=== PATIENT | female | born 1955 | race Caucasian/White ===

== ENCOUNTER → 2016-06-22 | Outpatient (CLI) | payer BC ==
[~2016-06-22] MED LIST: LEVO112T; LEVO112T3; LEVOTH PO; LEVOXYL PO; MAMMOGRAM; TORADOL PO; VICO5TAB; [UNRECOGNIZED DRUG - OTHER] PO; cipro
[2016-06-22 15:21] LABS: FREE T4 1.29 NG/DL (0.76-1.46)
== END ==
LOC: M LAB 13:58
PROVIDERS: ATTEND Nurse Practitioner Family
DX: E03.9 Hypothyroidism, unspecified (principal); E55.9 Vitamin D deficiency, unspecified

== ENCOUNTER → 2016-07-30 | Outpatient (CLI) | payer BC ==
--- NOTE | 2016-08-02 09:36 | REPMRS ---
Patient History The patient states she had a clinical breast exam in June 2016.Family history of breast cancer in sister at age 50 or over. Digital Mammo Screening Bilat: July 30, 2016 - Exam #: [id number] Bilateral CC and MLO view(s) were taken. Technologist: Cherie Gavin, Technologist Prior study comparison: July 28, 2015, bilateral digital mammo screening bilat performed at [facility]. July 26, 2014, bilateral digital mammo screening bilat performed at [facility]. FINDINGS: There are scattered fibroglandular densities. There is a fairly symmetric fibroglandular pattern in both breasts. There has been no interval development of masses, areas of architectural distortion or clusters of microcalcifications typical of malignancy. ASSESSMENT: BI-RADS/ACR category 2 mammogram. Benign finding(s). Recommendation Routine screening mammogram of both breasts in 1 year (for women over age 40). This mammogram was interpreted with the aid of an FDA-approved computer-aided dectection system. Electronically Signed By: Noah Lawson MD 08/02/16 0936
== END ==
LOC: M RAD 16:18
PROVIDERS: ATTEND Nurse Practitioner Family
DX: Z12.31 Encounter for screening mammogram for malignant neoplasm of breast (principal); Z80.3 Family history of malignant neoplasm of breast; R92.8 Other abnormal and inconclusive findings on diagnostic imaging of breast

== ENCOUNTER → 2016-09-27 | Outpatient (CLI) | payer BC ==
[~2016-09-27] VITALS: Ht 170.2 cm; Wt 86.2 kg
[~2016-09-27] MED LIST changes: +ASPI1TAB PO; +CALCTAB75 PO; +DESFLURANE 240 ML INHALANT As Ordered ONE; +LEVO88TA24 PO; +MULT1TAB10 PO; +NS 1,000 ML IV ONE; +OMEG100011 PO; +PROPOFOL 200 MG/20 ML VIAL As Ordered ONE; +VITA100037 PO
--- NOTE | 2016-09-27 13:03 | ROOR ---
Patient Name: Mamie Johnson Procedure Date: 09/27/2016 12:26 PM Date of : 1955 Age: 61 Room: [facility] Gender: Female Note Status: Finalized Procedure: Colonoscopy Indications: Last colonoscopy: April 2010, Positive Cologuard test Providers: Robi DE LA CRUZ MD Referring MD: Roma Kimball NP Requesting Provider: Medicines: Monitored Anesthesia Care Complications: No immediate complications. Procedure: Pre-Anesthesia Assessment: - The heart rate, respiratory rate, oxygen saturations, blood pressure, adequacy of pulmonary ventilation, and response to care were monitored throughout the procedure. The Colonoscope was introduced through the anus and advanced to the cecum, identified by appendiceal orifice and ileocecal valve. The colonoscopy was performed without difficulty. The patient tolerated the procedure well. The quality of the bowel preparation was good. Findings: The perianal and digital rectal examinations were normal. Two flat polyps were found in the ascending colon. The polyps were 5 mm in size. These polyps were removed with a cold snare. Resection and retrieval were complete. A 3 mm polyp was found in the sigmoid colon. The polyp was sessile. The polyp was removed with a cold snare. Resection was complete, but the polyp tissue was not retrieved. A few small-mouthed diverticula were found in the sigmoid colon. The exam was otherwise without abnormality on direct and retroflexion views. Impression: - Two 5-6 mm polyps in the ascending colon, removed with a cold snare. Resected and retrieved. - One 3 mm polyp in the sigmoid colon, removed with a cold snare. Complete resection. Polyp tissue not retrieved. - Moderate diverticulosis in the sigmoid colon. - The examination was otherwise normal on direct and retroflexion views. Recommendation: -In view of positive cologuard and negative colonoscopy, I would recommend repeat colonoscopy in 1 year. Robi De La Cruz MD Robi DE LA CRUZ MD 09/27/2016 1:03:16 PM This report has been signed electronically. Number of Addenda: 0 Note Initiated On: 09/27/2016 12:26 PM Estimated Blood Loss: Estimated blood loss: none.
[2016-09-27 13:20] VITALS: BP 156/77
== END ==
LOC: M OPP 10:34
PROVIDERS: ATTEND Internal Medicine Gastroenterology
DX: R19.5 Other fecal abnormalities (principal); D12.2 Benign neoplasm of ascending colon; D12.5 Benign neoplasm of sigmoid colon; K57.30 Diverticulosis of large intestine without perforation or abscess without bleeding; I51.9 Heart disease, unspecified; E03.9 Hypothyroidism, unspecified; R51 Headache; L43.9 Lichen planus, unspecified; Z87.891 Personal history of nicotine dependence; Z79.82 Long term (current) use of aspirin; Z79.899 Other long term (current) drug therapy; Z83.71 Family history of colonic polyps

== ENCOUNTER → 2016-11-16 | Outpatient (CLI) | payer BC ==
[~2016-11-16] MED LIST changes: -DESFLURANE 240 ML INHALANT As Ordered ONE; -NS 1,000 ML IV ONE; -PROPOFOL 200 MG/20 ML VIAL As Ordered ONE; -VITA100037 PO; +VITA100067 PO
--- NOTE | 2016-11-16 09:32 | REP ---
Thyroid ultrasound: There are no comparison studies. The patient has a right lobe at the knee that was performed approximate 13 years ago. There is a small volume of soft tissue in the right thyroid bed measuring 1.8 x 0.6 x 0.5 cm, possibly a small right lobe foramen. It is homogeneous with no nodule or mass. The left lobe is enlarged measuring 7.1 x 3.7 x 2.8 cm. The parenchyma is heterogeneous. Two distinct nodules are identified in the upper pole, one measuring 1.4 cm in diameter and the other measuring 2.1 cm in diameter. Additionally, in the midline of the neck. There is a cyst - like structure measuring 2.2 x 1.7 x 1.8 cm containing hypoechoic material, therefore a complex cyst. This may represent a thyroglossal duct cyst. However, the hypoechoic contents may represent infection or neoplasm. Impression: Right lobe thyroidectomy. There are two nodules in the left lobe. There is a cyst-like structure in the midline compatible with a thyroglossal duct cyst. However, this cyst is filled with hypoechoic material rather than fluid. This is nonspecific and may merely represent debris, however, infection and neoplasm are primary diagnostic concerns. Follow-up is recommended. Consider ENT consultation. Signed by Noah Verdugo MD 11/16/2016 09:23 A
== END ==
LOC: M RAD 08:41
PROVIDERS: ATTEND Emergency Medicine
DX: R22.1 Localized swelling, mass and lump, neck (principal); E89.0 Postprocedural hypothyroidism; E04.1 Nontoxic single thyroid nodule

== ENCOUNTER → 2016-12-03 | Outpatient (CLI) | payer BC ==
[~2016-12-03] MED LIST changes: +ISOVUE-370 76% 100ML VIAL (Q9967) As Ordered ONE
--- NOTE | 2016-12-04 09:00 | REP ---
CT NECK WITH CONTRAST: HISTORY: Neck mass. CONTRAST: Isovue 370, 75 mL. The naso-, hannah- and hypopharynx and larynx are normal in appearance. The salivary glands are normal in size and density. The patient is status post right thyroidectomy. The left thyroid lobe is enlarged and heterogeneous in density. The left thyroid lobe measures 4.9 cm in transverse by 5 cm in AP by 7.7 cm in cephalocaudal dimensions. There is minimal mass effect on the trachea that is displaced minimally to the right. There is inferior extension into the superior mediastinum. There is superior extension on the left neck to the level of the thyroid cartilage. An enlarged lymph node 1.1 cm in width is present in the right internal jugular chain at the level of the hannah- and hypopharynx. An enlarged lymph node 1.1_ cm in width is present in the left internal jugular chain at the level of the hannah- and hypopharynx. Small lymph nodes less than 1 cm in size are present in the posterior triangles, submandibular and submental areas. Atherosclerotic calcification is present at the left carotid bifurcation. Minimal degenerative change is present in the cervical spine. The lung apices are clear. Mucosal thickening is present in the maxillary sinuses. IMPRESSION: The patient is status post right thyroidectomy. The left thyroid lobe is enlarged and heterogeneous in density. This most likely represents goiter. Signed by Gene Sullivan MD 12/04/2016 09:03 A
== END ==
LOC: M RAD 17:41
PROVIDERS: ATTEND Otolaryngology
DX: E04.9 Nontoxic goiter, unspecified (principal)
CPT/HCPCS: 70491; Q9967

== ENCOUNTER → 2016-12-16 | Outpatient (CLI) | payer BC ==
[~2016-12-16] MED LIST changes: -ISOVUE-370 76% 100ML VIAL (Q9967) As Ordered ONE; +LIDOCAINE 1% MDV 20ML VIAL As Ordered ONE
--- NOTE | 2016-12-16 16:44 | REP ---
ULTRASOUND GUIDED LEFT THYROID BIOPSY AND ANTERIOR MIDLINE NECK MASS BIOPSY: The procedure was performed under the direct supervision of Dr. Gudino. The patient has a history of an enlarged left thyroid seen on a previous CT scan dated 12/03/2016 as well as on a previous ultrasound dated 11/16/2016. There is also a cystlike structure in the midline measuring 2.2 x 1.7 x 1.8 cm. The risks and benefits of the procedure were explained to the patient and informed consent was obtained. The left thyroid mass and midline cystic structure were localized using ultrasound guidance. The skin was prepped and draped in a sterile fashion. 1% lidocaine was used as a local anesthetic. The left thyroid mass was addressed first. Using ultrasound guidance, four fine-needle aspirations were obtained using 25-gauge needles. The midline cystic structure was then addressed. Using ultrasound guidance, an 18-gauge needle was inserted and advanced into the lesion. A few drops of red-colored fluid was withdrawn and sent to the lab. Four fine needle aspirations were then obtained. The patient tolerated the procedure well and there were no immediate complications. After the appropriate amount of monitored convalescence the patient was discharged from the department. Reviewed by SHAY Dobbs 12/17/2016 03:02 PEdited and Signed by Harinder Gudino MD 12/17/2016 04:09 P
== END ==
LOC: M RADPRO 08:14
PROVIDERS: ATTEND Otolaryngology
DX: E04.2 Nontoxic multinodular goiter (principal); I35.9 Nonrheumatic aortic valve disorder, unspecified; R51 Headache; E03.9 Hypothyroidism, unspecified; J32.9 Chronic sinusitis, unspecified; F17.210 Nicotine dependence, cigarettes, uncomplicated; Z86.39 Personal history of other endocrine, nutritional and metabolic disease; Z79.82 Long term (current) use of aspirin; Z79.899 Other long term (current) drug therapy

== ENCOUNTER → 2016-12-26 | Outpatient (CLI) | payer BC ==
[~2016-12-26] MED LIST changes: -LIDOCAINE 1% MDV 20ML VIAL As Ordered ONE
[2016-12-26 07:25] LABS: ALBUMIN 3.6 GM/DL (3.2-5.2); ALBUMIN/GLOBULIN RATIO 0.92 (1.00-1.93); ALKALINE PHOSPHATASE 84 U/L (45-117); ALT/SGPT 36 U/L (12-78); ANION GAP 10 MEQ/L (8-16); AST/SGOT 25 U/L (15-37); BILIRUBIN,TOTAL 0.4 MG/DL (0.2-1.0); BLOOD UREA NITROGEN 14 MG/DL (7-18); CALCIUM LEVEL 9.4 MG/DL (8.8-10.2); CARBON DIOXIDE LEVEL 27 MEQ/L (21-32); CHLORIDE LEVEL 108 MEQ/L (98-107); CHOLESTEROL LEVEL 248 MG/DL (<200); CREATININE FOR GFR 0.85 MG/DL (0.55-1.02); FREE T4 1.11 NG/DL (0.76-1.46); GLOMERULAR FILTRATION RATE > 60.0 (>45); GLUCOSE, FASTING 92 MG/DL (80-110); POTASSIUM SERUM 3.9 MEQ/L (3.5-5.1); SODIUM LEVEL 145 MEQ/L (136-145); TOTAL PROTEIN 7.5 GM/DL (6.4-8.2); TRIGLYCERIDES LEVEL 361 MG/DL (<150)
== END ==
LOC: M LAB 06:18
PROVIDERS: ATTEND Nurse Practitioner Family
DX: E03.9 Hypothyroidism, unspecified (principal); E78.2 Mixed hyperlipidemia

== ENCOUNTER → 2017-03-17 | Outpatient (CLI) | payer BC ==
[~2017-03-17] MED LIST changes: +LIDOCAINE 1% MDV 20ML VIAL As Ordered ONE
--- NOTE | 2017-03-19 09:00 | REP ---
Ultrasound-guided left thyroid biopsy The procedure was performed under the direct supervision of Dr. Lawson. The patient has a history of an enlarged left thyroid seen on a previous CT scan dated 12/03/2016 as well as on the previous ultrasound dated 11/16/2016. The left thyroid nodule was biopsied 12/16/2016 however the results were nondiagnostic. The patient is referred for rebiopsy of the left thyroid nodule. The risks and benefits of the procedure were explained to the patient and informed consent was obtained. The left thyroid nodule was localized using ultrasound guidance. The skin was prepped and draped in a sterile fashion. 1% Xylocaine was used as a local anesthetic. Using ultrasound guidance four fine-needle aspirations were obtained using 25 gauge needles. The patient did develop a small hematoma. Pressure was held on the site for five to the minutes until hemostasis was achieved. The patient tolerated the procedure well and there were no immediate complications. After the appropriate amount of monitored convalescence the patient was discharged from the department. Reviewed by SHAY Dobbs 03/17/2017 04:11 PSigned by Noah Lawson MD 03/19/2017 08:50 A
== END ==
LOC: M RADPRO 12:29
PROVIDERS: ATTEND Otolaryngology
DX: D49.7 Neoplasm of unspecified behavior of endocrine glands and other parts of nervous system (principal); R01.1 Cardiac murmur, unspecified; E04.2 Nontoxic multinodular goiter; Z87.891 Personal history of nicotine dependence; Z87.442 Personal history of urinary calculi; Z79.82 Long term (current) use of aspirin; Z79.899 Other long term (current) drug therapy

== ENCOUNTER → 2017-06-16 | Outpatient (CLI) | payer BC ==
[~2017-06-16] MED LIST changes: -ASPI1TAB PO; -CALCTAB75 PO; -LEVO112T; -LEVO112T3; -LEVO88TA24 PO; -LEVOTH PO; -LEVOXYL PO; +LIDOCAINE 1% MDV 20ML VIAL As Ordered; -LIDOCAINE 1% MDV 20ML VIAL As Ordered ONE; -MAMMOGRAM; -MULT1TAB10 PO; -OMEG100011 PO; -TORADOL PO; -VICO5TAB; -VITA100067 PO; -[UNRECOGNIZED DRUG - OTHER] PO; -cipro
== END ==
LOC: M RADPRO 12:41
DX: E04.2 Nontoxic multinodular goiter (principal); D34 Benign neoplasm of thyroid gland; Z79.82 Long term (current) use of aspirin
CPT/HCPCS: 10022

== ENCOUNTER → 2017-06-26 | Outpatient (CLI) | payer BC ==
[2017-06-26 17:04] LABS: TOTAL 25(OH) VITAMIN D 38.8 NG/ML (30.0-100.0)
[2017-06-26 17:12] LABS: ALBUMIN 3.8 GM/DL (3.2-5.2); ALBUMIN/GLOBULIN RATIO 0.97 (1.00-1.93); ALKALINE PHOSPHATASE 101 U/L (45-117); ALT/SGPT 24 U/L (12-78); ANION GAP 8 MEQ/L (8-16); AST/SGOT 16 U/L (7-37); BILIRUBIN,TOTAL 0.3 MG/DL (0.2-1.0); BLOOD UREA NITROGEN 18 MG/DL (7-18); CALCIUM LEVEL 9.3 MG/DL (8.8-10.2); CARBON DIOXIDE LEVEL 29 MEQ/L (21-32); CHLORIDE LEVEL 104 MEQ/L (98-107); CREATININE FOR GFR 0.96 MG/DL (0.55-1.30); FREE T4 1.18 NG/DL (0.76-1.46); GLOMERULAR FILTRATION RATE > 60.0 (>45); GLUCOSE, FASTING 102 MG/DL (70-100); POTASSIUM SERUM 3.6 MEQ/L (3.5-5.1); SODIUM LEVEL 141 MEQ/L (136-145); THYROID STIMULATING HORMONE 0.646 uIU/ML (0.358-3.740); TOTAL PROTEIN 7.7 GM/DL (6.4-8.2)
== END ==
LOC: M LAB 15:36
DX: I35.0 Nonrheumatic aortic (valve) stenosis (principal); E03.9 Hypothyroidism, unspecified; E55.9 Vitamin D deficiency, unspecified
CPT/HCPCS: 84443

== ENCOUNTER 2017-07-30 09:28 | Day surgery (SDC) | payer BC ==
[~2017-07-30 09:28] MED LIST changes: +ACETAMINOPHEN 325 MG TAB PO; -LIDOCAINE 1% MDV 20ML VIAL As Ordered; +PHENYLEPHRINE HCL 10 % OPHTH. SOL 5ML OD
[2017-07-30] MEDS: LIDOCAINE 3.5 % 1ML OPHTH TOPICAL GEL OU (10:25)
[2017-07-30] MEDS: OFLOXACIN 0.3 % (OCUFLOX) OPTH SOL 5ML OD (10:30)
[2017-07-30] MEDS: CYCLOPENTOLATE 2% OPHTH SOLN 2ML BTL OD (10:30)
[2017-07-30] MEDS: TROPICAMIDE 1% OPHTH SOLN 2ML OD (10:30)
[2017-07-30] MEDS: PHENYLEPHRINE 2.5% OPHTH SOL 2ML OD (10:30)
[2017-07-30] MEDS ORDERED: fentaNYL 100 MCG/2 ML INJECTION (J3010) As Ordered (10:46)
[2017-07-30] MEDS ORDERED: MIDAZOLAM INJ 2 MG/2 ML VIAL (J2250) As Ordered (10:46)
[2017-07-30] MEDS: POVIDONE-IODINE 5% OPHTH PREP SOL 30ML As Ordered (10:53)
[2017-07-30] MEDS: HEALON DUET (HEALON 10MG/ML 0.55ML & HEALON ENDOCOAT 30MG/ML 0.85ML) As Ordered (10:59)
[2017-07-30] MEDS: TRIAMCINOLONE PRES FR 40 MG/ML 1ML(TRIESENCE)(OR EYE ONLY)(J3300 PER 1MG) As Ordered (11:00)
[2017-07-30] MEDS: LIDOCAINE 1% SDV 5 ML VIAL As Ordered (11:00)
[2017-07-30] MEDS: BSS with VANC/TOB/EPI for EYE CASES IR (11:00)
[2017-07-30] MEDS: MOXIFLOXACIN IN BSS 0.25MG/0.25ML INTRACAMERAL INJ (OR EYE ONLY)(J2280) As Ordered (11:00)
[2017-07-30] MEDS: AcetaZOLAMIDE 500 MG ER CAP PO (11:21)
[2017-07-30] MEDS ORDERED: TRIMETHOBENZAMIDE 300 MG CAP PO (11:30)
== END 2017-07-30 11:50 | disposition home or self-care (01) ==
LOC: M SDC 09:28
DX: H25.9 Unspecified age-related cataract (principal); I35.9 Nonrheumatic aortic valve disorder, unspecified; E03.9 Hypothyroidism, unspecified; M25.511 Pain in right shoulder; Z79.899 Other long term (current) drug therapy; Z87.891 Personal history of nicotine dependence
CPT/HCPCS: 66984

== ENCOUNTER → 2017-08-11 | Outpatient (CLI) | payer BC | LOC: M RAD 15:43 | DX: Z12.31 Encounter for screening mammogram for malignant neoplasm of breast (principal); N60.02 Solitary cyst of left breast | CPT/HCPCS: 77067 ==

== ENCOUNTER 2017-11-13 07:49 | Day surgery (SDC) | payer BC ==
[~2017-11-13 07:49] MED LIST changes: -ACETAMINOPHEN 325 MG TAB PO; +LIDOCAINE 2% INJ 100 MG/5 ML SDV (FOR ANES.) As Ordered; -PHENYLEPHRINE HCL 10 % OPHTH. SOL 5ML OD; +PROPOFOL 200 MG/20 ML VIAL As Ordered
[2017-11-13] MEDS ORDERED: NS 1,000 ML IV (08:15)
[2017-11-13] MEDS ORDERED: PROPOFOL 200 MG/20 ML VIAL As Ordered (09:39)
== END 2017-11-13 10:10 | disposition home or self-care (01) ==
LOC: M OPP 07:49
DX: Z09 Encounter for follow-up examination after completed treatment for conditions other than malignant neoplasm (principal); Z86.010 Personal history of colon polyps; R19.5 Other fecal abnormalities; K57.30 Diverticulosis of large intestine without perforation or abscess without bleeding; K64.8 Other hemorrhoids; I35.9 Nonrheumatic aortic valve disorder, unspecified; E03.9 Hypothyroidism, unspecified; E04.1 Nontoxic single thyroid nodule; L43.9 Lichen planus, unspecified; J32.9 Chronic sinusitis, unspecified; R51 Headache; R06.83 Snoring; Z87.442 Personal history of urinary calculi; Z87.891 Personal history of nicotine dependence; Z79.82 Long term (current) use of aspirin; Z79.899 Other long term (current) drug therapy; Z80.9 Family history of malignant neoplasm, unspecified
CPT/HCPCS: 45378

== ENCOUNTER → 2017-12-15 | Outpatient (CLI) | payer BC | LOC: M RAD 12:22 | DX: E04.2 Nontoxic multinodular goiter (principal) ==

== ENCOUNTER → 2018-02-10 | Outpatient (CLI) | payer BC ==
[2018-02-10 07:51] LABS: ALBUMIN 3.8 GM/DL (3.2-5.2); ALBUMIN/GLOBULIN RATIO 1.12 (1.00-1.93); ALKALINE PHOSPHATASE 96 U/L (45-117); ALT/SGPT 29 U/L (12-78); ANION GAP 7 MEQ/L (8-16); AST/SGOT 21 U/L (7-37); BILIRUBIN,TOTAL 0.6 MG/DL (0.2-1.0); BLOOD UREA NITROGEN 14 MG/DL (7-18); CALCIUM LEVEL 9.1 MG/DL (8.8-10.2); CARBON DIOXIDE LEVEL 29 MEQ/L (21-32); CHLORIDE LEVEL 106 MEQ/L (98-107); CHOLESTEROL LEVEL 244 MG/DL (<200); CHOLESTEROL RISK RATIO 4.066 (<5); CREATININE FOR GFR 0.83 MG/DL (0.55-1.30); FREE T4 1.34 NG/DL (0.76-1.46); GLOMERULAR FILTRATION RATE > 60.0 (>45); GLUCOSE, FASTING 89 MG/DL (70-100); HDL CHOLESTEROL 60 MG/DL (>40); LDL CHOLESTEROL 155 MG/DL (<100); NON-HDL-C 184 MG/DL; SODIUM LEVEL 142 MEQ/L (136-145); THYROID STIMULATING HORMONE 0.868 uIU/ML (0.358-3.740); TOTAL PROTEIN 7.2 GM/DL (6.4-8.2); TRIGLYCERIDES LEVEL 147 MG/DL (<150)
[2018-02-10 10:07] LABS: TOTAL 25(OH) VITAMIN D 49.5 NG/ML (30.0-100.0)
== END ==
LOC: M LAB 06:50
DX: E03.9 Hypothyroidism, unspecified (principal); E78.2 Mixed hyperlipidemia; E55.9 Vitamin D deficiency, unspecified
CPT/HCPCS: 84443

== ENCOUNTER → 2018-03-15 | Outpatient (CLI) | payer BC | LOC: M RAD 09:24 | DX: M51.36 Other intervertebral disc degeneration, lumbar region (principal); M25.78 Osteophyte, vertebrae; M54.42 Lumbago with sciatica, left side | CPT/HCPCS: 72110 ==

== ENCOUNTER → 2018-03-26 | Outpatient (CLI) | payer BC ==
[~2018-03-26] MED LIST changes: +ASPI1TAB PO; +CALCTAB75 PO; +LEVO112T; +LEVO112T3; +LEVO88TA24 PO; +LEVOTH PO; +LEVOXYL PO; -LIDOCAINE 2% INJ 100 MG/5 ML SDV (FOR ANES.) As Ordered; +MAMMOGRAM; +MULT1TAB10 PO; +OMEG100011 PO; -PROPOFOL 200 MG/20 ML VIAL As Ordered; +TORADOL PO; +VICO5TAB; +VITA100067 PO; +[UNRECOGNIZED DRUG - OTHER] PO; +cipro
--- NOTE | 2018-03-27 09:02 | REP ---
Clinical: Flank pain. Renal calculi. Technique: Axial noncontrast images from the lung bases to the pubic symphysis with coronal and sagittal re-formations. Comparison: 03/01/2008. Findings: Lung bases demonstrate trace age-related fibroatelectatic change. Liver, spleen, pancreas, gallbladder, bilateral adrenal glands and kidneys are normal for noncontrast evaluation. Specifically, no urinary tract calcifications, hydroureteronephrosis or perinephric stranding appreciated. The enteric system is without obstruction or acute inflammatory process. Normal terminal ileum and appendix identified in the right lower quadrant. Colonic and sigmoid diverticulosis noted without acute diverticulitis. 3 cm fat containing periumbilical hernia noted. Pelvis demonstrates normal bladder and evidence for prior hysterectomy. No pelvic fluid. No ascites. No adenopathy. No free air. Abdominal aorta without aneurysm. Surrounding musculoskeletal structures demonstrate age-related changes without focal osseous abnormality. Impression: 1. Diverticulosis without acute diverticulitis. 2. No urinary tract calcifications appreciated. 3. No further acute abdominopelvic pathology appreciated. Electronically Signed by Zak Clark MD 03/27/2018 08:54 A
== END ==
LOC: M RAD 07:35
PROVIDERS: ATTEND Nurse Practitioner Family
DX: N20.0 Calculus of kidney (principal); K57.90 Diverticulosis of intestine, part unspecified, without perforation or abscess without bleeding

== ENCOUNTER → 2018-04-06 | Outpatient (RCR) | payer BC | LOC: M PT 03-18 15:33 | PROVIDERS: ATTEND Nurse Practitioner Family | DX: M54.42 Lumbago with sciatica, left side (principal) ==

== ENCOUNTER → 2018-06-25 | Outpatient (CLI) | payer BC ==
--- NOTE | 2018-06-26 18:45 | REP ---
Clinical: Nontoxic multinodular goiter. Comparison: 12/15/2017. Technique: Real time sinclair scale and color evaluation using linear high frequency transducer and curved array transducer. Findings: History of prior right thyroidectomy with stable heterogeneous residual right thyroid tissue measuring 15 x 9 x 8 mm essentially unchanged. The right thyroid lobe is diffusely heterogeneous and enlarged measuring 8.8 x 4.1 x 4.3 cm and includes multiple complex nodules including upper pole complex nodule measuring 3.1 x 1.8 x 1.8 cm (previously measuring 3.8 x 3.7 x 3.7 cm), mid pole complex nodule measuring 2.1 x 2.0 x 1.7 cm (previously measuring 2.8 x 2.6 x 2.0 cm) , and lower pole cystic nodule measuring 1.7 x 1.2 x 1.0 cm (previously measuring 1.6 x 1.2 x 1.1 cm). The lower pole cystic nodule measures 1.1 x 0.8 x 0.6 cm. Impression: Relatively similar heterogeneous enlarged multinodular appearance to the left thyroid lobe. Small amount of residual right thyroid tissue similar to prior examination. Electronically Signed by Zak Clark MD 06/26/2018 06:36 P
== END ==
LOC: M RAD 15:47
PROVIDERS: ATTEND Otolaryngology
DX: E04.2 Nontoxic multinodular goiter (principal)

== ENCOUNTER → 2018-08-12 | Outpatient (CLI) | payer BC ==
[~2018-08-12] MED LIST changes: -ASPI1TAB PO; +ASPI81TA26 PO
--- NOTE | 2018-08-12 10:00 | REPMRS ---
Patient History The patient states she has not had a clinical breast exam in over a year. Family history of breast cancer at age 50 or over in sister. 3D TOMOSYNTHESIS WAS PERFORMED. Digital Mammo Screening Bilat: August 12, 2018 - Exam #: [id number] Bilateral CC and MLO view(s) were taken. Technologist: Sagrario Guerrero Technologist Prior study comparison: August 11, 2017, bilateral digital mammo screening bilat performed at [facility]. July 30, 2016, bilateral digital mammo screening bilat performed at [facility]. FINDINGS: There are scattered fibroglandular densities. There is a fairly symmetric fibroglandular pattern in both breasts. There has been no interval development of masses, areas of architectural distortion or clusters of microcalcifications typical of malignancy. No significant changes when compared with prior studies. Assessment: BI-RADS/ACR category 2 mammogram. Benign Findings. Recommendation Routine screening mammogram of both breasts in 1 year (for women over age 40). This mammogram was interpreted with the aid of an FDA-approved computer-aided dectection system. Electronically Signed By: Noah Lawson MD 08/12/18 1000
== END ==
LOC: M RAD 09:20
PROVIDERS: ATTEND Nurse Practitioner Family
DX: Z12.31 Encounter for screening mammogram for malignant neoplasm of breast (principal); Z80.3 Family history of malignant neoplasm of breast

== ENCOUNTER → 2018-10-28 | Outpatient (REF) | payer BC | LOC: M SFHCPLAZ 10:39 | PROVIDERS: ATTEND Dermatology | DX: L82.0 Inflamed seborrheic keratosis (principal); L57.0 Actinic keratosis ==

== ENCOUNTER → 2018-12-05 | Outpatient (CLI) | payer BC ==
[2018-12-05 09:12] LABS: ALBUMIN 3.8 GM/DL (3.2-5.2); ALT/SGPT 23 U/L (12-78); BILIRUBIN,TOTAL 0.5 MG/DL (0.2-1.0); BLOOD UREA NITROGEN 17 MG/DL (7-18); CALCIUM LEVEL 9.8 MG/DL (8.8-10.2); CARBON DIOXIDE LEVEL 30 MEQ/L (21-32); CHLORIDE LEVEL 106 MEQ/L (98-107); CHOLESTEROL LEVEL 253 MG/DL (<200); CREATININE FOR GFR 0.89 MG/DL (0.55-1.30); FREE T4 1.32 NG/DL (0.76-1.46); GLOMERULAR FILTRATION RATE > 60.0 (>45); GLUCOSE, FASTING 95 MG/DL (70-100); HDL CHOLESTEROL 62 MG/DL (>40); LDL CHOLESTEROL 144 MG/DL (<100); NON-HDL-C 191 MG/DL; POTASSIUM SERUM 4.3 MEQ/L (3.5-5.1); SODIUM LEVEL 141 MEQ/L (136-145); THYROID STIMULATING HORMONE 0.591 uIU/ML (0.358-3.740); TOTAL PROTEIN 7.6 GM/DL (6.4-8.2); TRIGLYCERIDES LEVEL 237 MG/DL (<150)
[2018-12-08 09:10] LABS: TOTAL 25(OH) VITAMIN D 46.4 NG/ML (30.0-100.0)
== END ==
LOC: M LAB 07:06
PROVIDERS: ATTEND Nurse Practitioner Family
DX: E78.2 Mixed hyperlipidemia (principal); E03.9 Hypothyroidism, unspecified; E55.9 Vitamin D deficiency, unspecified

== ENCOUNTER → 2019-03-13 | Outpatient (CLI) | payer BC ==
[2019-03-13 08:00] LABS: ALBUMIN 3.6 GM/DL (3.2-5.2); ALT/SGPT 23 U/L (12-78); BILIRUBIN,TOTAL 0.5 MG/DL (0.2-1.0); BLOOD UREA NITROGEN 15 MG/DL (7-18); CARBON DIOXIDE LEVEL 26 MEQ/L (21-32); CHLORIDE LEVEL 109 MEQ/L (98-107); CHOLESTEROL LEVEL 166 MG/DL (<200); CHOLESTEROL RISK RATIO 2.553 (<5); CREATININE FOR GFR 0.92 MG/DL (0.55-1.30); FREE T4 1.26 NG/DL (0.76-1.46); GLOMERULAR FILTRATION RATE > 60.0 (>45); GLUCOSE, FASTING 92 MG/DL (70-100); HDL CHOLESTEROL 65 MG/DL (>40); LDL CHOLESTEROL 81 MG/DL (<100); NON-HDL-C 101 MG/DL; POTASSIUM SERUM 3.9 MEQ/L (3.5-5.1); SODIUM LEVEL 142 MEQ/L (136-145); TOTAL PROTEIN 7.1 GM/DL (6.4-8.2); TRIGLYCERIDES LEVEL 101 MG/DL (<150)
[2019-03-15 12:48] LABS: TOTAL 25(OH) VITAMIN D 54.2 NG/ML (30.0-100.0)
== END ==
LOC: M LAB 07:01
PROVIDERS: ATTEND Nurse Practitioner Family
DX: E03.9 Hypothyroidism, unspecified (principal); E78.2 Mixed hyperlipidemia; E55.9 Vitamin D deficiency, unspecified

== ENCOUNTER → 2019-06-28 | Outpatient (CLI) | payer BC ==
--- NOTE | 2019-06-29 07:18 | REP ---
Clinical: History of nontoxic goiter. Technique: Real time sinclair scale and color evaluation using linear high frequency and curved array transducers. Comparison: Findings: Residual right thyroid tissue measures approximately 1.7 x 0.8 x 0.8 cm. Isthmus measures 3.3 mm in width. The left thyroid gland is enlarged and heterogeneous measuring 10 and 7 x 2.9 x 4.4 cm including complex anterior mid pole nodule measuring 2.1 x 2.0 x 2.3 cm, and complex cyst with small amounts of mural calcification measuring 1.4 x 1.5 x 1.5 cm along with complex posterior lower pole nodule measuring this 0.6 x 3.2 x 2.9 cm. Impression: Enlarged heterogeneous left thyroid lobe with complex lesions similar to prior examination. Few smaller nodules on prior examination are no longer identifiable and may be lost within the underlying parenchymal heterogeneity. Electronically Signed by Zak Clark MD 06/28/2019 12:50 P
== END ==
LOC: M RAD 12:15
PROVIDERS: ATTEND Otolaryngology
DX: E04.9 Nontoxic goiter, unspecified (principal)

== ENCOUNTER → 2019-07-11 | Outpatient (CLI) | payer BC | LOC: M LAB 06:57 | PROVIDERS: ATTEND Nurse Practitioner Family | DX: E03.9 Hypothyroidism, unspecified (principal); E78.2 Mixed hyperlipidemia; E55.9 Vitamin D deficiency, unspecified ==

== ENCOUNTER → 2019-07-11 | Outpatient (REF) | payer BC ==
[2019-07-11 07:59] LABS: ALBUMIN 3.7 GM/DL (3.2-5.2); ALT/SGPT 21 U/L (12-78); BILIRUBIN,TOTAL 0.4 MG/DL (0.2-1.0); BLOOD UREA NITROGEN 16 MG/DL (7-18); CALCIUM LEVEL 9.1 MG/DL (8.8-10.2); CARBON DIOXIDE LEVEL 28 MEQ/L (21-32); CHLORIDE LEVEL 109 MEQ/L (98-107); CHOLESTEROL LEVEL 165 MG/DL (<200); CHOLESTEROL RISK RATIO 2.538 (<5); CREATININE FOR GFR 0.91 MG/DL (0.55-1.30); FREE T4 1.25 NG/DL (0.76-1.46); GLOMERULAR FILTRATION RATE > 60.0 (>45); GLUCOSE, FASTING 87 MG/DL (70-100); HDL CHOLESTEROL 65 MG/DL (>40); LDL CHOLESTEROL 74 MG/DL (<100); NON-HDL-C 100 MG/DL; POTASSIUM SERUM 3.9 MEQ/L (3.5-5.1); SODIUM LEVEL 141 MEQ/L (136-145); THYROID STIMULATING HORMONE 0.554 uIU/ML (0.358-3.740); TOTAL PROTEIN 7.5 GM/DL (6.4-8.2); TRIGLYCERIDES LEVEL 131 MG/DL (<150)
[2019-07-12 10:00] LABS: TOTAL 25(OH) VITAMIN D 56.7 NG/ML (30.0-100.0)
== END ==
LOC: M LAB REF 07:21
PROVIDERS: ATTEND Nurse Practitioner Family
DX: E03.9 Hypothyroidism, unspecified (principal); E78.2 Mixed hyperlipidemia; E55.9 Vitamin D deficiency, unspecified

== ENCOUNTER → 2019-07-16 | Outpatient (CLI) | payer BC ==
--- NOTE | 2019-07-16 08:31 | REP ---
CHEST X-RAY: TWO VIEWS. HISTORY: Nontraumatic aortic valve stenosis. Comparison chest x-ray: October 02, 2011. FINDINGS: There are surgical clips in the soft tissues of the neck on the right suggesting previous right thyroidectomy. There is soft tissue fullness to the left of the trachea displacing it to the right consistent with enlargement of the left thyroid. These findings are unchanged from the 2012 prior study. The lungs are well inflated and clear. The heart is normal in size. Cardiothoracic ratio is 44.1%. The thoracic aorta slightly tortuous. No abnormal intracardiac calcifications are visible. Pulmonary vasculature is not increased. Pleural angles are sharp. No infiltrate is seen. IMPRESSION: Findings consistent with left-sided goiter and prior right thyroidectomy. Otherwise no acute disease. Electronically Signed by Harinder Gudino MD 07/16/2019 09:33 A
== END ==
LOC: M RAD 07:40
PROVIDERS: ATTEND Nurse Practitioner Family
DX: I35.0 Nonrheumatic aortic (valve) stenosis (principal); Z90.89 Acquired absence of other organs

== ENCOUNTER → 2019-07-29 | Outpatient (CLI) | payer BC | LOC: M LAB 11:18 | PROVIDERS: ATTEND Internal Medicine Cardiovascular Disease | DX: R06.02 Shortness of breath (principal) ==

== ENCOUNTER → 2019-08-17 | Outpatient (CLI) | payer BC ==
--- NOTE | 2019-08-17 10:15 | REP ---
DIGITAL DIAGNOSTIC BILATERAL MAMMOGRAPHY WITH 3D TOMOGRAPHY, CAD, AND FOCUSED RIGHT BREAST SONOGRAPHY: HISTORY: Patient for screening mammography. Diagnostic images obtained at my request. Comparison mammography August 12, 2018, August 11, 2017, and July 30, 2016. MAMMOGRAPHIC FINDINGS: Breast parenchyma is predominately fat replaced. The Volpara volumetric breast density category is A. There are scattered stable nodular opacities bilaterally unchanged from multiple prior studies. There is a well-circumscribed nodular neodensity, 5 mm in diameter, in the inferomedial quadrant of the right breast which is posteriorly adjacent to a stable benign 8 mm nodule. These are both well circumscribed. Magnified focal spot compression images of the inferomedial aspect of the right breast confirms this nodular neodensity with well-circumscribed margins. No other mammographically suspicious finding is seen. SONOGRAPHIC FINDINGS: Focused right breast sonography is carried out inferiorly and medially in the right breast at approximate 5-o'clock position. 3 cm from the nipple in the 5o'clock position of the right breast, sonography demonstrates two adjacent cysts. The larger measures 8 x 5 x 5 mm and the smaller more posteriorly situated measures 5 x 4 x 5 mm. This is felt to account for the mammographic neodensity. No suspicious sonographic findings. IMPRESSION: BIRADS 2: BI-RADS/ACR category 2 mammogram. Benign Findings. BIRADS category 2 benign findings. Repeat screening mammography recommended 1 year. This mammogram was interpreted with the aid of an FDA-approved computer-aided detection system. The patient states she had a clinical breast exam in July 26, 2019. The patient letter being requested is M1. This patient's estimated Tyrer-Cuzick lifetime risk assessment for breast cancer is 13.2 %.
== END ==
LOC: M WHC 07:57
PROVIDERS: ATTEND Nurse Practitioner Family
DX: Z12.31 Encounter for screening mammogram for malignant neoplasm of breast (principal); N60.01 Solitary cyst of right breast

== ENCOUNTER → 2019-08-18 | Outpatient (CLI) | payer BC ==
[2019-08-18 08:19] LABS: BASO % 0.5 % (0.0-1.0); EOS # 0.4 10^3/uL (0.0-0.5); HEMATOCRIT 42.9 % (36.0-47.0); HEMOGLOBIN 14.3 g/dl (12.0-15.5); LYMPH # 2.9 10^3/uL (1.5-5.0); LYMPH % 37.8 % (24.0-44.0); MEAN CORPUSCULAR HEMOGLOBIN 30.4 pg (27.0-33.0); MEAN CORPUSCULAR HGB CONC 33.3 g/dl (32.0-36.5); MEAN CORPUSCULAR VOLUME 91.3 fl (80.0-96.0); MONO # 0.7 10^3/uL (0.0-0.8); MONO % 8.7 % (0.0-5.0); NEUTROPHILS # 3.6 10^3/uL (1.5-8.5); NEUTROPHILS % 47.7 % (36.0-66.0); PLATELET COUNT, AUTOMATED 191 10^3/uL (150-450); WHITE BLOOD COUNT 7.6 10^3/uL (4.0-10.0)
[2019-08-18 08:43] LABS: BLOOD UREA NITROGEN 18 MG/DL (7-18); CALCIUM LEVEL 9.9 MG/DL (8.8-10.2); CARBON DIOXIDE LEVEL 27 MEQ/L (21-32); CHLORIDE LEVEL 107 MEQ/L (98-107); CREATININE FOR GFR 0.88 MG/DL (0.55-1.30); GLOMERULAR FILTRATION RATE > 60.0 (>45); GLUCOSE, FASTING 102 MG/DL (70-100); SODIUM LEVEL 142 MEQ/L (136-145)
== END ==
LOC: M LAB 07:35
PROVIDERS: ATTEND Internal Medicine Cardiovascular Disease
DX: R06.02 Shortness of breath (principal); I35.2 Nonrheumatic aortic (valve) stenosis with insufficiency

== ENCOUNTER → 2019-09-22 | Outpatient (CLI) | payer BC ==
--- NOTE | 2019-09-22 09:12 | REPPI ---
Clinical: Right hip pain. Technique: Neutral and frog lateral views of the right hip. Findings: Examination is essentially normal for age. Minimally increased sclerosis to the acetabular roof with mild joint space narrowing suggested. No acute fracture dislocation. No overt arthritic changes noted. Surrounding soft tissues are unremarkable. Impression: Mild age-related degenerative change. Electronically Signed by Zak Clark MD 09/22/2019 09:03 A
== END ==
LOC: M PLAIMG 08:29
PROVIDERS: ATTEND Nurse Practitioner Family
DX: M25.551 Pain in right hip (principal); M16.11 Unilateral primary osteoarthritis, right hip

== ENCOUNTER → 2019-10-18 | Outpatient (CLI) | payer BC ==
--- NOTE | 2019-10-21 10:40 | DEXA ---
AP SPINE L1 - L4 1.032 -1.3 0.3 LT FEMUR TOTAL 0.965 -0.3 0.9 LT NECK 0.898 -1.0 0.5 RT FEMUR TOTAL 1.045 0.3 1.5 RT NECK 1.079 0.3 1.8 TOTAL BODY TOTAL OTHER COMMENTS: Normal bone densitometry of the right hip. There is low bone density of the spine. There is low bone density of the left hip. FOLLOW-UP: Recommendation for the next bone density exam: 2 years. JEET
== END ==
LOC: M WHC 09:43
PROVIDERS: ATTEND Nurse Practitioner Family
DX: M85.89 Other specified disorders of bone density and structure, multiple sites (principal)

== ENCOUNTER → 2019-10-22 | Outpatient (CLI) | payer BC | LOC: M LABSMTC 11:00 | PROVIDERS: ATTEND Internal Medicine Cardiovascular Disease | DX: Z11.59 Encounter for screening for other viral diseases (principal) | CPT/HCPCS: C9803; U0003 ==

== ENCOUNTER → 2020-01-08 | Outpatient (CLI) | payer BC ==
[2020-01-08 15:58] LABS: ALBUMIN 3.9 GM/DL (3.2-5.2); ALT/SGPT 21 U/L (12-78); BILIRUBIN,TOTAL 0.5 MG/DL (0.2-1.0); BLOOD UREA NITROGEN 17 MG/DL (7-18); CALCIUM LEVEL 9.5 MG/DL (8.8-10.2); CARBON DIOXIDE LEVEL 28 MEQ/L (21-32); CHLORIDE LEVEL 108 MEQ/L (98-107); CREATININE FOR GFR 0.89 MG/DL (0.55-1.30); FREE T4 1.32 NG/DL (0.76-1.46); GLOMERULAR FILTRATION RATE > 60.0 (>45); GLUCOSE, FASTING 91 MG/DL (70-100); POTASSIUM SERUM 3.9 MEQ/L (3.5-5.1); SODIUM LEVEL 141 MEQ/L (136-145); THYROID STIMULATING HORMONE 0.123 uIU/ML (0.358-3.740); TOTAL PROTEIN 7.4 GM/DL (6.4-8.2)
[2020-01-10 11:51] LABS: TOTAL 25(OH) VITAMIN D 68.1 NG/ML (30.0-100.0)
== END ==
LOC: M LAB 15:03
PROVIDERS: ATTEND Nurse Practitioner Family
DX: E03.9 Hypothyroidism, unspecified (principal); E55.9 Vitamin D deficiency, unspecified; E78.2 Mixed hyperlipidemia

== ENCOUNTER → 2020-03-23 | Outpatient (CLI) | payer BC ==
[2020-03-23 12:33] LABS: FREE T4 1.21 NG/DL (0.76-1.46); THYROID STIMULATING HORMONE 1.13 uIU/ML (0.358-3.740)
== END ==
LOC: M LAB 11:15
PROVIDERS: ATTEND Nurse Practitioner Family
DX: E03.9 Hypothyroidism, unspecified (principal)

== ENCOUNTER → 2020-08-24 | Outpatient (CLI) | payer MEDICARE ==
[2020-08-24 09:26] LABS: ALBUMIN 3.9 GM/DL (3.2-5.2); ALT/SGPT 26 U/L (12-78); BILIRUBIN,TOTAL 0.6 MG/DL (0.2-1.0); BLOOD UREA NITROGEN 13 MG/DL (7-18); CALCIUM LEVEL 9.1 MG/DL (8.8-10.2); CARBON DIOXIDE LEVEL 31 MEQ/L (21-32); CHLORIDE LEVEL 108 MEQ/L (98-107); CHOLESTEROL LEVEL 171 MG/DL (<200); CREATININE FOR GFR 0.78 MG/DL (0.55-1.30); FREE T4 1.26 NG/DL (0.76-1.46); GLOMERULAR FILTRATION RATE > 60.0 (>45); GLUCOSE, FASTING 90 MG/DL (70-100); HDL CHOLESTEROL 66 MG/DL (>40); LDL CHOLESTEROL 74 MG/DL (<100); NON-HDL-C 105 MG/DL; POTASSIUM SERUM 4.2 MEQ/L (3.5-5.1); SODIUM LEVEL 142 MEQ/L (136-145); THYROID STIMULATING HORMONE 0.484 uIU/ML (0.358-3.740); TOTAL PROTEIN 7.5 GM/DL (6.4-8.2); TRIGLYCERIDES LEVEL 157 MG/DL (<150)
[2020-08-24 13:19] LABS: TOTAL 25(OH) VITAMIN D 50.5 NG/ML (30.0-100.0)
== END ==
LOC: M LAB 07:56
PROVIDERS: ATTEND Nurse Practitioner Family
DX: E03.9 Hypothyroidism, unspecified (principal)

== ENCOUNTER → 2020-08-31 | Outpatient (CLI) | payer MEDICARE ==
--- NOTE | 2020-08-31 12:44 | REP ---
INDICATION: JODY DIAG MAMMO/R BREAST LUMP/N63.10; N63.10 R BREAST LUMP. COMPARISON: Comparison mammography August 11, 2017, August 12, 2018, and August 17, 2019. TECHNIQUE: A skin marker is affixed to the skin at the site of the palpable abnormality discovered by clinician breast exam. Routine views of the right breast are augmented by magnified focal spot-compression and true mediolateral projection images. 3D tomography is utilized bilaterally. Targeted right breast sonography is performed. FINDINGS: Scattered fibroglandular elements are seen bilaterally. No suspicious or dominant density is seen. No microcalcification or architectural distortion is seen. Previously noted nodular densities representing cysts in the right breast have regressed in the interval since the most recent prior study of August 17, 2019. Two of these were in the vicinity marked by the current skin marker. No new density or progressive changes seen on either side. Stable nodular density is noted on the left. Normal appearing lymph nodes are seen bilaterally. No mammographically suspicious finding. No worrisome skin change is appreciated. 3-D tomosynthesis shows no additional finding. The Volpara volumetric breast density pattern is B. Targeted right breast sonography: Scanning in the area of the palpable lump, 3:00 to 5:00, shows normal slightly heterogeneous background echotexture. No cyst or mass is seen by sonography. No suspicious ultrasound finding.. IMPRESSION: BI-RADS category 2 benign mammographic and right breast sonographic findings. This patient's Tyrer-zi lifetime breast cancer risk assessment score is 12.6%. This mammogram was interpreted with the aid of an FDA-approved computer-aided detection system. The patient states she had a clinical breast exam in August of 2020. The patient letter being requested is M2. RECOMMENDATION: Repeat screening mammography recommended 1 year (for women over 40). <Electronically signed by Misael Gudino > 08/31/20 [id number]
== END ==
LOC: M WHC 11:19
PROVIDERS: ATTEND Nurse Practitioner Family
DX: N63.14 Unspecified lump in the right breast, lower inner quadrant (principal)
CPT/HCPCS: 76642; 77066; G0279; G0463

== ENCOUNTER → 2020-09-15 | Outpatient (CLI) | payer MEDICARE ==
--- NOTE | 2020-09-15 19:51 | REP ---
INDICATION: NON TOXIC MULTI NODULAR GOITER. Patient has a history of right thyroidectomy. COMPARISON: Comparison thyroid sonography June 28, 2019. Comparison soft tissue neck CT study is from December 03, 2016.. TECHNIQUE: High-resolution bilateral thyroid sonography. FINDINGS: There is residual right thyroid tissue again noted measuring 1.8 x 0.6 x 0.7 cm. The thyroid isthmus is 0.3 cm. Left lobe dimensions are 9.8 x 5.6 x 4.7 cm. Multiple large nodules are seen on the left essentially replacing the normal glandular tissue. This corresponds to CT findings from 2016 and sonographic findings from June 28, 2019. There are low left thyroid nodules which are solid measuring 2.4 x 1.9 x 1.7, 4.4 x 3.1 x 3.4, and 3.1 x 2.7 x 2.2 cm respectively. These are similar to previous dimensions. The largest nodule may have enlarged slightly. IMPRESSION: Multinodular thyroid on the left. Residual thyroid tissue on the right. <Electronically signed by Misael Gudino > 09/15/201947
== END ==
LOC: M RAD 15:26
PROVIDERS: ATTEND Otolaryngology
DX: E04.1 Nontoxic single thyroid nodule (principal)

== ENCOUNTER → 2020-10-27 | Outpatient (CLI) | payer MEDICARE ==
[~2020-10-27] MED LIST changes: +AMOX500C PO; +CLAR10CA3 PO; +DOXY-443 PO; +PRED20TA PO
[2020-10-27 17:36] LABS: BASO % 0.4 % (0.0-1.0); EOS % 0.4 % (0.0-3.0); HEMATOCRIT 44.9 % (36.0-47.0); HEMOGLOBIN 14.8 g/dl (12.0-15.5); LYMPH # 1.8 10^3/uL (1.5-5.0); LYMPH % 36.8 % (24.0-44.0); MEAN CORPUSCULAR HEMOGLOBIN 29.5 pg (27.0-33.0); MEAN CORPUSCULAR VOLUME 89.6 fl (80.0-96.0); MONO # 0.7 10^3/uL (0.0-0.8); MONO % 13.3 % (2.0-8.0); NEUTROPHILS # 2.3 10^3/uL (1.5-8.5); NEUTROPHILS % 47.9 % (36.0-66.0); PLATELET COUNT, AUTOMATED 133 10^3/uL (150-450); RED BLOOD COUNT 5.01 10^6/uL (4.00-5.40); WHITE BLOOD COUNT 4.9 10^3/uL (4.0-10.0)
[2020-10-27 17:38] LABS: ALBUMIN 3.5 GM/DL (3.2-5.2); BILIRUBIN,TOTAL 0.5 MG/DL (0.2-1.0); GLOMERULAR FILTRATION RATE 59.1 (>45); POTASSIUM SERUM 3.5 MEQ/L (3.5-5.1); TOTAL PROTEIN 7.6 GM/DL (6.4-8.2)
[2020-10-30 18:07] LABS: Lyme Disease IgG/IgM Antibodie <0.91 ISR (0.00-0.90); Lyme Disease IgM Ab Quantitati <0.80 index (0.00-0.79)
== END ==
LOC: M PLALAB 14:45
PROVIDERS: ATTEND Physician Assistant
DX: A69.20 Lyme disease, unspecified (principal); R53.82 Chronic fatigue, unspecified; R06.02 Shortness of breath

== ENCOUNTER → 2020-10-27 | Outpatient (REF) | payer MEDICARE | LOC: M SFHCPLAZ 17:10 | PROVIDERS: ATTEND Physician Assistant | DX: R06.02 Shortness of breath (principal); A69.20 Lyme disease, unspecified; R53.82 Chronic fatigue, unspecified | CPT/HCPCS: 36415; 80053; 85025; 86617; 87426; 93005; G0463; U0003 ==

== ENCOUNTER 2020-10-28 09:37 | Emergency (ER) | payer MEDICARE ==
[~2020-10-28] VITALS: Ht 170.2 cm; Wt 90.9 kg
[~2020-10-28 09:37] MED LIST changes: -AMOX500C PO; -CLAR10CA3 PO; -DOXY-443 PO; -PRED20TA PO
[2020-10-28] MEDS ORDERED: DOXY1CAP62 PO ×2 (10:06→10:30)
[2020-10-28 10:19] VITALS: BP 140/70
[2020-10-29] MEDS ORDERED: AMOX500C PO ×2 (15:16→15:18)
[2020-10-29] MEDS ORDERED: CLAR10CA3 PO (15:18)
[2020-10-29] MEDS ORDERED: PRED20TA PO (15:18)
== END 2020-10-28 10:19 | disposition home or self-care (01) ==
LOC: M ED 09:37
DX: R03.0 Elevated blood-pressure reading, without diagnosis of hypertension (principal); A69.20 Lyme disease, unspecified; E03.9 Hypothyroidism, unspecified; Z87.442 Personal history of urinary calculi; Z79.899 Other long term (current) drug therapy; Z79.82 Long term (current) use of aspirin; Z79.890 Hormone replacement therapy

== ENCOUNTER 2020-10-29 12:36 | Emergency (ER) | payer MEDICARE ==
[~2020-10-29] VITALS: Ht 170.2 cm; Wt 91.3 kg
[~2020-10-29 12:36] MED LIST changes: +DOXY1CAP62 PO
[2020-10-29] MEDS ORDERED: LORATADINE 10 MG TAB PO ONE (14:55)
[2020-10-29] MEDS ORDERED: predniSONE 20 MG TAB PO ONE (14:55)
[2020-10-29 15:04] VITALS: BP 168/72
[2020-10-29] MEDS ORDERED: AMOX500C PO ×2 (15:16→15:18)
[2020-10-29] MEDS ORDERED: PRED20TA PO (15:18)
[2020-10-29] MEDS ORDERED: CLAR10CA3 PO (15:18)
== END 2020-10-29 15:28 | disposition home or self-care (01) ==
LOC: M ED 12:36
DX: A26.0 Cutaneous erysipeloid (principal); E03.9 Hypothyroidism, unspecified; Z79.899 Other long term (current) drug therapy; Z79.890 Hormone replacement therapy; Z79.82 Long term (current) use of aspirin
CPT/HCPCS: 99283; J7512

== ENCOUNTER → 2021-03-07 | Outpatient (CLI) | payer MEDICARE ==
[~2021-03-07] MED LIST changes: +AMOX500C PO; +CLAR10CA3 PO; +DOXY-443 PO; -DOXY1CAP62 PO; +PRED20TA PO
[2021-03-07 15:39] LABS: HEMATOCRIT 44.3 % (36.0-47.0); HEMOGLOBIN 14.3 g/dl (12.0-15.5); MEAN CORPUSCULAR HEMOGLOBIN 29.5 pg (27.0-33.0); MEAN CORPUSCULAR HGB CONC 32.3 g/dl (32.0-36.5); MEAN CORPUSCULAR VOLUME 91.3 fl (80.0-96.0); PLATELET COUNT, AUTOMATED 191 10^3/uL (150-450); RED BLOOD COUNT 4.85 10^6/uL (4.00-5.40); WHITE BLOOD COUNT 8.1 10^3/uL (4.0-10.0)
[2021-03-07 16:01] LABS: ALBUMIN 3.9 GM/DL (3.2-5.2); ALT/SGPT 25 U/L (12-78); BILIRUBIN,TOTAL 0.4 MG/DL (0.2-1.0); BLOOD UREA NITROGEN 17 MG/DL (7-18); CALCIUM LEVEL 9.4 MG/DL (8.8-10.2); CARBON DIOXIDE LEVEL 27 MEQ/L (21-32); CHLORIDE LEVEL 110 MEQ/L (98-107); CREATININE FOR GFR 0.92 MG/DL (0.55-1.30); GLOMERULAR FILTRATION RATE > 60.0 (>45); GLUCOSE, FASTING 89 MG/DL (70-100); POTASSIUM SERUM 4.2 MEQ/L (3.5-5.1); SODIUM LEVEL 144 MEQ/L (136-145); TOTAL PROTEIN 7.3 GM/DL (6.4-8.2)
== END ==
LOC: M PLALAB 13:13
PROVIDERS: ATTEND Physician Assistant
DX: R74.01 Elevation of levels of liver transaminase levels (principal)

== ENCOUNTER → 2021-03-07 | Outpatient (CLI) | payer MEDICARE ==
[2021-03-07 16:06] LABS: FREE T4 1.31 NG/DL (0.76-1.46); THYROID STIMULATING HORMONE 0.732 uIU/ML (0.358-3.740)
[2021-03-07 16:07] LABS: TOTAL 25(OH) VITAMIN D 57.7 NG/ML (30.0-100.0)
== END ==
LOC: M PLALAB 12:54
PROVIDERS: ATTEND Nurse Practitioner Family
DX: E03.9 Hypothyroidism, unspecified (principal); R74.01 Elevation of levels of liver transaminase levels; Z79.899 Other long term (current) drug therapy

== ENCOUNTER → 2021-08-31 | Outpatient (CLI) | payer MEDICARE ==
[2021-08-31 11:18] LABS: BASO # 0.1 10^3/uL (0.0-0.2); BASO % 0.7 % (0.0-1.0); EOS # 0.3 10^3/uL (0.0-0.5); EOS % 3.7 % (0.0-3.0); HEMOGLOBIN 14.2 g/dl (12.0-15.5); LYMPH # 3.2 10^3/uL (1.5-5.0); LYMPH % 42.2 % (24.0-44.0); MEAN CORPUSCULAR HEMOGLOBIN 30.3 pg (27.0-33.0); MEAN CORPUSCULAR VOLUME 91.7 fl (80.0-96.0); MONO # 0.7 10^3/uL (0.0-0.8); MONO % 8.8 % (2.0-8.0); NEUTROPHILS # 3.3 10^3/uL (1.5-8.5); NEUTROPHILS % 44.2 % (36.0-66.0); PLATELET COUNT, AUTOMATED 183 10^3/uL (150-450); RED BLOOD COUNT 4.69 10^6/uL (4.00-5.40); WHITE BLOOD COUNT 7.5 10^3/uL (4.0-10.0)
[2021-08-31 11:46] LABS: ALBUMIN 3.7 GM/DL (3.2-5.2); ALT/SGPT 24 U/L (12-78); BILIRUBIN,TOTAL 0.6 MG/DL (0.2-1.0); BLOOD UREA NITROGEN 15 MG/DL (7-18); CALCIUM LEVEL 9.1 MG/DL (8.8-10.2); CARBON DIOXIDE LEVEL 29 MEQ/L (21-32); CHLORIDE LEVEL 109 MEQ/L (98-107); CHOLESTEROL LEVEL 163 MG/DL (<200); CHOLESTEROL RISK RATIO 2.716 (<5); FREE T4 1.27 NG/DL (0.76-1.46); GLOMERULAR FILTRATION RATE > 60.0 (>45); GLUCOSE, FASTING 92 MG/DL (70-100); HDL CHOLESTEROL 60 MG/DL (>40); LDL CHOLESTEROL 76 MG/DL (<100); NON-HDL-C 103 MG/DL; POTASSIUM SERUM 4.6 MEQ/L (3.5-5.1); SODIUM LEVEL 141 MEQ/L (136-145); THYROID STIMULATING HORMONE 0.885 uIU/ML (0.358-3.740); TOTAL 25(OH) VITAMIN D 50.2 NG/ML (30.0-100.0); TOTAL PROTEIN 7.1 GM/DL (6.4-8.2); TRIGLYCERIDES LEVEL 137 MG/DL (<150)
== END ==
LOC: M PLALAB 08:34
PROVIDERS: ATTEND Physician Assistant
DX: E55.9 Vitamin D deficiency, unspecified (principal); E03.9 Hypothyroidism, unspecified; Z79.899 Other long term (current) drug therapy

== ENCOUNTER → 2021-09-06 | Outpatient (CLI) | payer MEDICARE | LOC: M WHC 08:51 | PROVIDERS: ATTEND Physician Assistant | DX: Z12.31 Encounter for screening mammogram for malignant neoplasm of breast (principal) ==

== ENCOUNTER → 2021-09-17 | Outpatient (CLI) | payer MEDICARE | LOC: M RAD 15:13 | PROVIDERS: ATTEND Otolaryngology | DX: E04.2 Nontoxic multinodular goiter (principal) ==

== ENCOUNTER → 2022-01-03 | Outpatient (CLI) | payer MEDICARE ==
[~2022-01-03] MED LIST changes: +ATOR1TAB19 PO; +CALCTAB41 PO; +D-50CAP PO; +LEVO75TA4 PO; +LOSA50TA28 PO; +MULT-90 PO; +TUMERIC PO
[2022-01-03 17:14] LABS: BASO % 0.4 % (0.0-1.0); EOS # 0.3 10^3/uL (0.0-0.5); EOS % 2.5 % (0.0-3.0); HEMATOCRIT 44.5 % (36.0-47.0); HEMOGLOBIN 14.5 g/dl (12.0-15.5); LYMPH # 3.8 10^3/uL (1.5-5.0); LYMPH % 33.9 % (24.0-44.0); MEAN CORPUSCULAR HEMOGLOBIN 30.5 pg (27.0-33.0); MEAN CORPUSCULAR HGB CONC 32.6 g/dl (32.0-36.5); MEAN CORPUSCULAR VOLUME 93.7 fl (80.0-96.0); MONO % 8.5 % (2.0-8.0); NEUTROPHILS # 6.1 10^3/uL (1.5-8.5); NEUTROPHILS % 54.3 % (36.0-66.0); PLATELET COUNT, AUTOMATED 233 10^3/uL (150-450); RED BLOOD COUNT 4.75 10^6/uL (4.00-5.40); WHITE BLOOD COUNT 11.2 10^3/uL (4.0-10.0)
[2022-01-03 17:29] LABS: INR 0.89; PROTHROMBIN TIME 12.4 SECONDS (12.7-14.5)
[2022-01-03 17:30] LABS: PARTIAL THROMBOPLASTIN TIME 29.5 SECONDS (25.9-37.0)
[2022-01-03 18:33] LABS: ALT/SGPT 31 U/L (12-78); BILIRUBIN,TOTAL 0.3 MG/DL (0.2-1.0); BLOOD UREA NITROGEN 19 MG/DL (7-18); CALCIUM LEVEL 10.2 MG/DL (8.8-10.2); CARBON DIOXIDE LEVEL 30 MEQ/L (21-32); CHLORIDE LEVEL 105 MEQ/L (98-107); CREATININE FOR GFR 0.86 MG/DL (0.55-1.30); FREE T4 1.16 NG/DL (0.76-1.46); GLOMERULAR FILTRATION RATE > 60.0 (>45); GLUCOSE, FASTING 99 MG/DL (70-100); NT-PRO BNP 66 PG/ML (<125); POTASSIUM SERUM 4.6 MEQ/L (3.5-5.1); SODIUM LEVEL 139 MEQ/L (136-145); THYROID STIMULATING HORMONE 0.848 uIU/ML (0.358-3.740)
== END ==
LOC: M PLAIMG 15:53
PROVIDERS: ATTEND Family Medicine
DX: I35.0 Nonrheumatic aortic (valve) stenosis (principal); E07.9 Disorder of thyroid, unspecified

== ENCOUNTER → 2022-01-03 | Outpatient (CLI) | payer MEDICARE | LOC: M LABSMTC 09:21 | PROVIDERS: ATTEND Anesthesiology | DX: Z01.818 Encounter for other preprocedural examination (principal); Z11.52 Encounter for screening for COVID-19 ==

== ENCOUNTER 2022-01-08 06:05 | Day surgery (SDC) | payer MEDICARE ==
[~2022-01-08] VITALS: Ht 170.2 cm; Wt 95.3 kg
[~2022-01-08 06:05] MED LIST changes: +ceFAZolin SOD 2 GM in IV 1 EA IV ONE
[2022-01-08] MEDS ORDERED: LR 1,000 ML IV SCH ×2 (06:25→08:40)
[2022-01-08] MEDS ORDERED: LIDOCAINE 2% W/EPINEPHRINE 20ML VIAL **PRES FREE As Ordered ONE (07:17)
[2022-01-08] MEDS ORDERED: POVIDONE-IODINE 5% OPHTH PREP SOL 30ML As Ordered ONE (07:18)
[2022-01-08] MEDS ORDERED: POLYSPORIN OPHTH OINT 3.5 GM As Ordered ONE (07:18)
[2022-01-08] MEDS ORDERED: LIDOCAINE W/EPINEPHRINE 1% 20ML VIAL As Ordered ONE (07:18)
[2022-01-08] MEDS ORDERED: propofoL 200 MG/20 ML VIAL As Ordered ONE (07:23)
[2022-01-08] MEDS ORDERED: LIDOCAINE 2% 100MG/5ML SDV (FOR ANES.) As Ordered ONE (07:23)
[2022-01-08] MEDS ORDERED: fentaNYL 100 MCG/2 ML INJECTION As Ordered ONE (07:23)
[2022-01-08] MEDS ORDERED: MIDAZOLAM INJ 2MG/2ML VIAL (J2250 PER 1MG) As Ordered ONE (07:23)
[2022-01-08] MEDS ORDERED: LACRILUBE (AKWA TEARS) OPHTH OINT 3.5 GM As Ordered ONE (08:00)
[2022-01-08] MEDS ORDERED: dexameTHASONE 4 MG/ML 1ML VIAL (J1100 PER 1MG) As Ordered ONE (08:12)
[2022-01-08] MEDS ORDERED: ONDANSETRON 4MG 2ML VIAL As Ordered ONE (08:12)
[2022-01-08] MEDS ORDERED: METOCLOPRAMIDE INJ 10MG/2ML VIAL (J2765 PER 1) As Ordered ONE (08:19)
[2022-01-08] MEDS ORDERED: ACETAMINOPHEN 1000MG 100ML IV BTL (OFIRMEV) (J0131 PER 10MG) As Ordered ONE (08:23)
[2022-01-08] MEDS ORDERED: ePHEDrine SULFATE 25 MG/5 ML(5MG/ML) SYRINGE As Ordered ONE (08:26)
[2022-01-08] MEDS ORDERED: MORPHINE 2 MG/ML 1ML VIAL IV PRN (08:40)
[2022-01-08] MEDS ORDERED: oxyCODONE 5MG TAB PO PRN (08:40)
[2022-01-08] MEDS ORDERED: fentaNYL 100 MCG/2 ML INJECTION IV PRN (08:40)
[2022-01-08] MEDS ORDERED: ONDANSETRON 4MG 2ML VIAL IV PRN (08:40)
[2022-01-08 09:45] VITALS: BP 120/55
== END 2022-01-08 09:50 | disposition home or self-care (01) ==
LOC: M SDC 06:05
PROVIDERS: ATTEND Plastic Surgery Surgery of the Hand
DX: L72.0 Epidermal cyst (principal); I10 Essential (primary) hypertension; E03.9 Hypothyroidism, unspecified; K57.92 Diverticulitis of intestine, part unspecified, without perforation or abscess without bleeding
CPT/HCPCS: 11446; 12053; 88304; J0131; J0690; J1100; J2250; J2405; J2765; J3010

== ENCOUNTER 2022-02-06 10:27 | Emergency (ER) | payer MEDICARE ==
[~2022-02-06] VITALS: Ht 170.2 cm; Wt 96.1 kg
[2022-02-06 10:27] VITALS: BP 140/90
[~2022-02-06 10:27] MED LIST changes: -ceFAZolin SOD 2 GM in IV 1 EA IV ONE
[2022-02-06] MEDS ORDERED: NS 1,000 ML IV ONE (11:25)
[2022-02-06 11:55] LABS: BASO # 0.1 10^3/uL (0.0-0.2); BASO % 0.4 % (0.0-1.0); EOS # 0.1 10^3/uL (0.0-0.5); EOS % 1.1 % (0.0-3.0); HEMATOCRIT 44.7 % (36.0-47.0); HEMOGLOBIN 14.7 g/dl (12.0-15.5); LYMPH # 2.3 10^3/uL (1.5-5.0); LYMPH % 20.7 % (24.0-44.0); MEAN CORPUSCULAR HEMOGLOBIN 30.6 pg (27.0-33.0); MEAN CORPUSCULAR HGB CONC 32.9 g/dl (32.0-36.5); MEAN CORPUSCULAR VOLUME 93.1 fl (80.0-96.0); MONO # 0.8 10^3/uL (0.0-0.8); MONO % 6.9 % (2.0-8.0); NEUTROPHILS # 7.9 10^3/uL (1.5-8.5); NEUTROPHILS % 70.6 % (36.0-66.0); PLATELET COUNT, AUTOMATED 193 10^3/uL (150-450); WHITE BLOOD COUNT 11.2 10^3/uL (4.0-10.0)
[2022-02-06 12:37] LABS: ALBUMIN 3.9 GM/DL (3.2-5.2); ALT/SGPT 31 U/L (12-78); BILIRUBIN,DIRECT < 0.1 MG/DL (0.0-0.2); BILIRUBIN,TOTAL 0.6 MG/DL (0.2-1.0); BLOOD UREA NITROGEN 12 MG/DL (7-18); CALCIUM LEVEL 9.8 MG/DL (8.8-10.2); CARBON DIOXIDE LEVEL 26 MEQ/L (21-32); CHLORIDE LEVEL 106 MEQ/L (98-107); CREATININE FOR GFR 0.87 MG/DL (0.55-1.30); GLOMERULAR FILTRATION RATE > 60.0 (>45); GLUCOSE, FASTING 101 MG/DL (70-100); LIPASE 121 U/L (73-393); POTASSIUM SERUM 4.8 MEQ/L (3.5-5.1); SODIUM LEVEL 138 MEQ/L (136-145); TOTAL PROTEIN 7.9 GM/DL (6.4-8.2)
[2022-02-06] MEDS ORDERED: ISOVUE-370 76% 100ML VIAL As Ordered ONE (12:40)
[2022-02-06] MEDS ORDERED: MUPI30CR TOP (14:56)
== END 2022-02-06 15:23 | disposition home or self-care (01) ==
LOC: M ED 11:54
DX: K52.9 Noninfective gastroenteritis and colitis, unspecified (principal); E78.5 Hyperlipidemia, unspecified; K76.0 Fatty (change of) liver, not elsewhere classified; I10 Essential (primary) hypertension; Z88.1 Allergy status to other antibiotic agents
CPT/HCPCS: 74177; 76705; 80048; 80076; 81002; 83690; 85025; 86618; 99283; Q9967

== ENCOUNTER → 2022-02-21 | Outpatient (CLI) | payer MEDICARE ==
[~2022-02-21] MED LIST changes: +MUPI30CR TOP
[2022-02-21 15:05] LABS: BLOOD UREA NITROGEN 10 MG/DL (9-23); CARBON DIOXIDE LEVEL 27 MMOL/L (20-31); CHLORIDE LEVEL 104 MMOL/L (98-107); CREATININE FOR GFR 0.79 MG/DL (0.55-1.30); GLOMERULAR FILTRATION RATE > 60.0 (>45); GLUCOSE, FASTING 89 MG/DL (74-106); PHOSPHORUS LEVEL 3.2 MG/DL (2.4-5.1); POTASSIUM SERUM 4.1 MMOL/L (3.5-5.1); PTH INTACT 28.9 PG/ML (18.5-88.0); SODIUM LEVEL 141 MMOL/L (136-145); TOTAL 25(OH) VITAMIN D 58.4 NG/ML (20.0-100.0); TOTAL PROTEIN 7.1 GM/DL (6.4-8.2)
== END ==
LOC: M PLALAB 09:23
PROVIDERS: ATTEND Physician Assistant
DX: E55.9 Vitamin D deficiency, unspecified (principal); Z79.899 Other long term (current) drug therapy

== ENCOUNTER → 2022-07-25 | Outpatient (CLI) | payer MEDICARE ==
[2022-07-25 15:32] LABS: ALBUMIN 3.7 G/DL (3.2-5.2); ALKALINE PHOSPHATASE 105 U/L (46-116); ALT/SGPT 30 U/L (7.0-40); AST/SGOT 25 U/L (<34); BILIRUBIN,TOTAL 0.7 MG/DL (0.3-1.2); BLOOD UREA NITROGEN 15 MG/DL (9-23); CALCIUM LEVEL 9.5 MG/DL (8.3-10.6); CARBON DIOXIDE LEVEL 30 MMOL/L (20-31); CHLORIDE LEVEL 104 MMOL/L (98-107); CHOLESTEROL LEVEL 161 MG/DL (<200); CREATININE FOR GFR 0.82 MG/DL (0.55-1.30); FREE T4 1.17 NG/DL (0.89-1.76); GLOMERULAR FILTRATION RATE > 60.0 (>45); GLUCOSE, FASTING 146 MG/DL (74-106); HDL CHOLESTEROL 51.8 MG/DL (>40); LDL CHOLESTEROL 79.2 MG/DL (<100); NON-HDL-C 109.2 MG/DL; POTASSIUM SERUM 3.8 MMOL/L (3.5-5.1); SODIUM LEVEL 139 MMOL/L (136-145); THYROID STIMULATING HORMONE 0.711 uIU/ML (0.55-4.78); TOTAL PROTEIN 7.4 G/DL (5.7-8.2); TRIGLYCERIDES LEVEL 150 MG/DL (<150)
== END ==
LOC: M PLALAB 10:17
PROVIDERS: ATTEND Physician Assistant
DX: E03.9 Hypothyroidism, unspecified (principal); I35.0 Nonrheumatic aortic (valve) stenosis

== ENCOUNTER → 2022-09-09 | Outpatient (CLI) | payer MEDICARE | LOC: M WHC 09:20 | PROVIDERS: ATTEND Physician Assistant | DX: Z12.31 Encounter for screening mammogram for malignant neoplasm of breast (principal) ==

== ENCOUNTER → 2022-09-16 | Outpatient (CLI) | payer MEDICARE ==
[2022-09-16 11:26] LABS: HEMOGLOBIN A1c 5.2 % (4.0-6.0)
== END ==
LOC: M PLALAB 08:12
PROVIDERS: ATTEND Physician Assistant
DX: R73.9 Hyperglycemia, unspecified (principal)

== ENCOUNTER 2023-01-21 07:45 | Day surgery (SDC) | payer MEDICARE ==
[~2023-01-21] VITALS: Ht 170.2 cm; Wt 341.1 kg
[~2023-01-21 07:45] MED LIST changes: +LIDOCAINE 2% 100MG/5ML SDV (FOR ANES.) As Ordered ONE; +NS 1,000 ML IV ONE; +RA T500C2 PO; +propofoL 200 MG/20 ML VIAL As Ordered ONE
[2023-01-21] MEDS ORDERED: propofoL 200 MG/20 ML VIAL As Ordered ONE (09:49)
[2023-01-21 10:22] VITALS: BP 117/64; TEMP 96.1; O2SAT 97
== END 2023-01-21 10:30 | disposition home or self-care (01) ==
LOC: M OPP 07:45
PROVIDERS: ATTEND Internal Medicine Gastroenterology
DX: Z12.11 Encounter for screening for malignant neoplasm of colon (principal); Z86.010 Personal history of colon polyps; K63.5 Polyp of colon; K57.30 Diverticulosis of large intestine without perforation or abscess without bleeding; K64.8 Other hemorrhoids; Z79.02 Long term (current) use of antithrombotics/antiplatelets; Z79.82 Long term (current) use of aspirin; Z79.890 Hormone replacement therapy; Z79.899 Other long term (current) drug therapy; Z88.1 Allergy status to other antibiotic agents; Z91.89 Other specified personal risk factors, not elsewhere classified; I35.9 Nonrheumatic aortic valve disorder, unspecified

== ENCOUNTER → 2023-07-15 | Outpatient (CLI) | payer MEDICARE ==
[~2023-07-15] MED LIST changes: -LIDOCAINE 2% 100MG/5ML SDV (FOR ANES.) As Ordered ONE; -NS 1,000 ML IV ONE; -propofoL 200 MG/20 ML VIAL As Ordered ONE
[2023-07-15 11:59] LABS: BLOOD UREA NITROGEN 14 MG/DL (9-23); CALCIUM LEVEL 9.5 MG/DL (8.3-10.6); CARBON DIOXIDE LEVEL 29 MMOL/L (20-31); CHLORIDE LEVEL 104 MMOL/L (98-107); CHOLESTEROL LEVEL 174 MG/DL (<200); CHOLESTEROL RISK RATIO 3.05 (<5); CREATININE FOR GFR 0.81 MG/DL (0.55-1.30); GLOMERULAR FILTRATION RATE > 60.0 (>45); GLUCOSE, FASTING 89 MG/DL (74-106); LDL CHOLESTEROL 80.2 MG/DL (<100); POTASSIUM SERUM 4.3 MMOL/L (3.5-5.1); SODIUM LEVEL 141 MMOL/L (136-145); TRIGLYCERIDES LEVEL 184 MG/DL (<150)
[2023-07-15 12:00] LABS: THYROID STIMULATING HORMONE 1.082 uIU/ML (0.55-4.78)
== END ==
LOC: M PLALAB 08:39
PROVIDERS: ATTEND Family Medicine
DX: I10 Essential (primary) hypertension (principal)

== ENCOUNTER → 2023-09-08 | Outpatient (CLI) | payer MEDICARE ==
[~2023-09-08] MED LIST changes: +DOXY-323 PO; -DOXY-443 PO
== END ==
LOC: M RAD 13:18
PROVIDERS: ATTEND Otolaryngology
DX: E04.2 Nontoxic multinodular goiter (principal)

== ENCOUNTER → 2023-09-11 | Outpatient (CLI) | payer MEDICARE | LOC: M WHC 10:44 | PROVIDERS: ATTEND Family Medicine | DX: Z12.31 Encounter for screening mammogram for malignant neoplasm of breast (principal) ==

== ENCOUNTER → 2024-01-23 | Outpatient (CLI) | payer MEDICARE ==
[~2024-01-23] MED LIST changes: -DOXY-323 PO; +DOXY-441 PO
[2024-01-23 19:07] LABS: ALBUMIN 3.5 G/DL (3.2-5.2); ALKALINE PHOSPHATASE 106 U/L (46-116); ALT/SGPT 16 U/L (7.0-40); AST/SGOT 14 U/L (<34); BILIRUBIN,TOTAL 0.3 MG/DL (0.3-1.2); BLOOD UREA NITROGEN 17 MG/DL (9-23); CALCIUM LEVEL 9.5 MG/DL (8.3-10.6); CARBON DIOXIDE LEVEL 28 MMOL/L (20-31); CHLORIDE LEVEL 111 MMOL/L (98-107); CREATININE FOR GFR 0.81 MG/DL (0.55-1.30); GLOMERULAR FILTRATION RATE > 60.0 (>45); GLUCOSE, FASTING 97 MG/DL (74-106); POTASSIUM SERUM 3.9 MMOL/L (3.5-5.1); SODIUM LEVEL 143 MMOL/L (136-145); TOTAL PROTEIN 7.1 G/DL (5.7-8.2)
== END ==
LOC: M PLALAB 14:36
PROVIDERS: ATTEND Physician Assistant
DX: E78.00 Pure hypercholesterolemia, unspecified (principal); I11.9 Hypertensive heart disease without heart failure

== ENCOUNTER → 2024-04-13 | Outpatient (CLI) | payer MEDICARE | LOC: M PLAIMG 10:52 | PROVIDERS: ATTEND Physician Assistant Medical | DX: R07.81 Pleurodynia (principal); W19.XXXA Unspecified fall, initial encounter ==

== ENCOUNTER → 2025-01-10 | Outpatient (CLI) | payer MEDICARE ==
[~2025-01-10] MED LIST changes: -RA T500C2 PO; +TURM500C10 PO
== END ==
LOC: M PLALAB 10:01
PROVIDERS: ATTEND Family Medicine
DX: E03.9 Hypothyroidism, unspecified (principal)

== ENCOUNTER → 2025-02-23 | Outpatient (CLI) | payer MEDICARE | LOC: M EKG 10:01 | PROVIDERS: ATTEND Physician Assistant | DX: I44.7 Left bundle-branch block, unspecified (principal); Z53.9 Procedure and treatment not carried out, unspecified reason ==

== ENCOUNTER → 2025-02-23 | Outpatient (CLI) | payer MEDICARE | LOC: M CARPUL 09:58 | PROVIDERS: ATTEND Physician Assistant | DX: I35.2 Nonrheumatic aortic (valve) stenosis with insufficiency (principal); Z95.4 Presence of other heart-valve replacement ==